=== PATIENT | female | born 1975 | race Caucasian/White ===

== ENCOUNTER 2024-09-21 08:29 | Outpatient (CLI) | payer OTHER ==
[2024-09-21 09:25] LABS: #Basophils 0.03 10x3/uL (0.0-0.2); #Eosinophils 0.12 10x3/uL (0.0-0.7); #Monocytes 0.38 10x3/uL (0.11-0.59); #Neutrophils 3.12 10x3/uL (1.40-6.50); %Basophils 0.5 % (0.0-1.0); %Eosinophils 2.0 % (0.0-10.0); %Lymphocytes 39.6 % (21.0-51.0); %Monocytes 6.3 % (0.0-10.0); %Neutrophils 51.3 % (42.0-75.0); Hematocrit 36.1 % (36.0-47.0); Hemoglobin 12.5 g/dL (12.0-16.0); Mean Corpuscular Hemoglobin 33.7 pg (27.0-31.0); Mean Corpuscular Volume 97.3 fL (78.0-98.0); Platelet Count 241 10x3/uL (130-400); Red Blood Cell (RBC) Count 3.71 mill/uL (4.20-5.40); White Blood Cell (WBC) Count 6.08 10x3/uL (4.8-10.8)
== END 2024-09-21 08:30 | disposition home or self-care (01) ==
LOC: LABBT 08:29
PROVIDERS: ATTEND Orthopaedic Surgery Hand Surgery
DX: Z01.818 Encounter for other preprocedural examination (principal); G56.22 Lesion of ulnar nerve, left upper limb
CPT/HCPCS: 85025; 93005; 93010